=== PATIENT | female | born 1985 | race Two or more races ===

== ENCOUNTER 2017-01-04 23:29 | Observation (INO) | payer SELFPAY ==
[2017-01-04 23:34] VITALS: TEMP 97; O2SAT 100
--- NOTE | 2017-01-04 23:53 | ED PDOC ---
HPI: Psych/Substance Abuse Time Seen by Provider: 01/04/17 23:42 Chief Complaint (Nursing): Alcohol Ingestion Chief Complaint (Provider): etoh History Per: Patient, EMS Additional Complaint(s): 31-year-old female arrives via ambulance for evaluation of acute alcohol intoxication. Patient is acutely combative upon arrival. Past Medical History Reviewed: Historical Data Vital Signs: Last Vital Signs Temp 97 F L 01/04/17 23:31 Pulse 78 01/04/17 23:31 Resp 18 01/04/17 23:31 BP 128/78 01/04/17 23:31 Pulse Ox 100 01/04/17 23:31 - Medical History PMH: No Chronic Diseases - Family History Family History: States: No Known Family Hx - Living Arrangements Living Arrangements: With Family - Social History Alcohol: Social - Allergies Allergies/Adverse Reactions: Allergies Allergy/AdvReac Type Severity Reaction Status Date / Time No Known Allergies Allergy Verified 01/04/17 23:52 Review of Systems ROS Statement: Except As Marked, All Systems Reviewed And Found Negative Psych: Positive for: Other (etoh) Physical Exam - Reviewed Nursing Documentation Reviewed: Yes Vital Signs Reviewed: Yes - Physical Exam Appears: Positive for: Well, Non-toxic, No Acute Distress Skin: Negative for: Rash Eye Exam: Positive for: Normal appearance Cardiovascular/Chest: Positive for: Regular Rate, Rhythm Respiratory: Positive for: Normal Breath Sounds Extremity: Positive for: Normal ROM Neurologic/Psych: Positive for: Other (Alert, acutely intoxicated, acutely combative) - ECG O2 Sat by Pulse Oximetry: 100 Pulse Ox Interpretation: Normal Medical Decision Making Medical Decision Making: Impression: 31-year-old intoxicated, combative female. 23:50 - Patient arrives via ambulance, she is highly uncooperative upon arrival. Patient is trying to leave and is threatening to hit ED staff. Security was called to bedside immediately upon patient's arrival and patient was placed in 4. restraints for her safety and the safety of ED staff. Patient was medicated with 2 mg IM Ativan and 5 mg IM Haldol. She was admitted to ED observation and placed under one-to-one bedside observation. ED OBSERVATION Date of observation admission: 01/04/17 Time of observation admission: 23:55 - Observation admission statement Patient is being placed in observation because:: Alcohol intoxication and combativeness - Goals of Observation Goals of observation are:: Monitor patient while acutely intoxicated, pending sobriety - Progress Note Progress Note: 01/05/17 01:04 Patient is now asleep, vital signs stable, restraints removed, patient will continue to be under 1:1 bedside observation 01/05/17 03:00 Patient woke up because she urinated on herself. Patient was assisted into dry gowns. She will continue to be monitored. 01/05/17 04:35 Patient is asleep, arousable, no airway compromise 01/05/17 05:55 Patient is asleep, arousable, no airway compromise Disposition - Clinical Impression Clinical Impression: Alcohol intoxication - Patient ED Disposition Is Patient to be Admitted: Transfer of Care - Disposition Disposition: Transfer of Care Disposition Time: 06:00 Condition: FAIR Patient Signed Over To: Scott aVsquez Handoff Comments: Case was signed out to Dr. Vasquez pending sobriety and final disposition
--- NOTE | 2017-01-05 06:58 | ED PDOC ---
- ECG O2 Sat by Pulse Oximetry: 100 (RA) Pulse Ox Interpretation: Normal Medical Decision Making Medical Decision Making: Patient signed out to provider at 0600 from Marii Grant PA-C, pending sobriety. Patient now awake and sober, will d/c home. Scribe~Attestation Documented by Rach Valencia acting as a scribe for Scott Vasquez MD. Provider~Attestation: All medical record entries made by the Scribe were at my direction and personally dictated by me. I have reviewed the chart and agree that the record accurately reflects my personal performance of the history, physical exam, medical decision making, and the department course for this patient. I have also personally directed, reviewed, and agree with the discharge instructions and disposition Disposition - Clinical Impression Clinical Impression: Alcohol intoxication - POA Present On Arrival: None - Disposition Disposition: Routine/Home Disposition Time: 07:00 Condition: STABLE
[2017-01-05 08:39] VITALS: RESP 18
[2017-01-05 08:40] VITALS: BP 117/69; PULSE 74
== END 2017-01-05 07:04 | disposition home or self-care (01) ==
LOC: H.ER 23:29 → H.EROBSV 23:52
PROVIDERS: ADMIT Emergency Medicine; ATTEND Emergency Medicine
DX: F10.129 Alcohol abuse with intoxication, unspecified (principal); Z78.1 Physical restraint status
CPT/HCPCS: 96372; 99284; G0378; J1630; J2060